=== PATIENT | female | born 1970 | race Two or more races ===

== ENCOUNTER 2022-12-14 21:20 | Emergency (ER) | payer OTHER ==
[~2022-12-14] VITALS: Ht 167.6 cm; Wt 70.3 kg
[2022-12-14] MEDS ORDERED: DILTIAZEM 24HR180 MG PO (21:30)
[2022-12-14] MEDS ORDERED: PEPCID AC20 MG PO (22:57)
[2022-12-14] MEDS ORDERED: MEDROLPACK PO (22:57)
[2022-12-14] MEDS ORDERED: DIPHENHYDRAMINE50 M1 PO (22:57)
== END 2022-12-14 23:25 | disposition home or self-care (01) ==
LOC: ER 21:20
DX: R21 Rash and other nonspecific skin eruption (principal); Z91.018 Allergy to other foods; Z91.013 Allergy to seafood